=== PATIENT | male | born 1980 | race Caucasian/White ===

== ENCOUNTER 2021-02-15 10:00 | Emergency (ER) | payer OTHER ==
[~2021-02-15] VITALS: Ht 188 cm; Wt 105.0 kg
--- NOTE | 2021-02-15 10:03 | NUR ---
PT BROUGHT IN FROM [facility] FOR CHIEF COMPLAINT OF LEFT EYE PAIN AND BLURRED VISION.
[2021-02-15 10:04] VITALS: BP 131/80
[2021-02-15] MEDS ORDERED: PLEASE ENTER HEIGHT AND WEIGHT MC SCH (10:30)
[2021-02-15] MEDS ORDERED: PROPARACAINE OPHTH 0.5%, 15ML EACHEYE ONE (10:30)
[2021-02-15] MEDS ORDERED: FLUORESCEIN OPHTHALMIC 1 MG STRIP EACHEYE ONE (10:30)
--- NOTE | 2021-02-15 10:45 | NUR ---
ER NAVA MERCADO AT BEDSIDE
[2021-02-15] MEDS ORDERED: PLEASE ENTER ALLERGIES MC SCH (11:00)
--- NOTE | 2021-02-15 11:18 | NUR ---
DC INSTRUCTIONS REVIEWED
== END 2021-02-15 11:20 | disposition home or self-care (01) ==
LOC: ED 10:08
DX: H57.12 Ocular pain, left eye (principal)
CPT/HCPCS: 99283